=== PATIENT | male | born 1935 | race Caucasian/White ===

== ENCOUNTER → 2018-06-08 00:08 | Emergency (ER) | payer MEDICARE, OTHER ==
[~2018-06-08 00:08] MED LIST: Metoclopramide IV* 5 MG/ML 2 ML VIAL IV ONE; Morphine VIAL* 4 MG/ML VIAL (1 ml vial) IV ONE; NS 0.9% 1000 ML* 1,000 ML IV ONE; NS 0.9% 1000 ML* 1,000 ML IV SCH; fentaNYL* 50 MCG/ML 2 ML VIAL (100 MCG VIAL) ONE
[2018-06-08] MEDS: fentaNYL* 50 MCG/ML 2 ML VIAL (100 MCG VIAL) IV SLOW PU ONE ×2 (00:47→01:00)
[2018-06-08 00:54] LABS: ABS Basophils 0.1 10^3/ul (0-0.2); ABS Eosinophils 0 10^3/ul (0-0.6); ABS Lymphocytes 0.8 10^3/ul (1.0-4.8); ABS Monocytes 1.5 10^3/ul (0-0.8); ABS Neutrophils 17.1 10^3/ul (1.5-7.7); ABS Nucleated RBC 0 10^3/ul; Eosinophil % 0 % (0-6); Hematocrit 31 % (42-52); Hemoglobin 10.7 g/dl (14.0-18.0); Lymphocyte % 4.1 % (25-47); Mean Corpuscular HGB Conc 34 g/dl (31-36); Mean Corpuscular Hemoglobin 35 pg (27-31); Mean Corpuscular Volume 104 fL (80-94); Mean Platelet Volume 7.2 fL (7.4-10.4); Nucleated Red Blood Cells % 0; Platelet Count 171 10^3/ul (150-450); Red Blood Count 3.02 10^6/ul (4.00-5.40); Red Cell Distribution Width 13 % (10.5-15); White Blood Count 19.5 10^3/ul (3.5-10.8)
--- NOTE | 2018-06-08 00:59 | ED ---
Abdominal Pain/Male - HPI Summary HPI Summary: This patient is an 82 year old M with ALS BIBA to [facility] with a chief complaint of immediate onset sharp abdominal pain that radiates to the back pain since 20: 00 today. Patient fell on the way to the bathroom. Per EMS, patient had a 60/40 blood pressure when lying down and was vomiting. He was given painkillers earlier today and also threw them up. Patient is on medications for eye issues. - History of Current Complaint Chief Complaint: EDAbdPain Stated Complaint: ABD PAIN Time Seen by Provider: 06/08/18 00:09 Hx Obtained From: Patient, EMS Onset/Duration: Sudden Onset, Lasting Hours - Since 20:00 today Timing: Constant, Lasting Hours - Since 20:00 today Severity Initially: Severe Severity Currently: Severe Pain Intensity: 10 Pain Scale Used: 0-10 Numeric Radiates: Yes Radiates to: Back Character: Sharp Associated Signs And Symptoms: Positive: Vomiting - Allergies/Home Medications Allergies/Adverse Reactions: Allergies Allergy/AdvReac Type Severity Reaction Status Date / Time No Known Allergies Allergy Verified 06/08/18 00:46 Home Medications: Home Medications NK [No Home Medications Reported] 06/08/18 [History Confirmed 06/08/18] PMH/Surg Hx/FS Hx/Imm Hx Endocrine/Hematology History: Denies: Hx Diabetes Respiratory History: Denies: Hx Asthma Opthamlomology History: Reports: Other Sensory Impairments - Eye problems - Cancer History Cancer Type, Location and Year: Bladder cancer Infectious Disease History: No Infectious Disease History: Denies: Traveled Outside the [place] in Last 30 Days - Family History Known Family History: Negative: Cardiac Disease - Social History Occupation: Retired Lives: With Family Substance Use Type: Reports: None Hx Tobacco Use: Yes Review of Systems Negative: Fever Positive: Abdominal Pain - immediate onset sharp abdominal pain that radiates to the back pain , Vomiting All Other Systems Reviewed And Are Negative: Yes Physical Exam - Summary Physical Exam Summary: GENERAL: Patient is a well-developed and nourished __(M)__ who is lying very uncomfortable secondary to pain in the stretcher. Patient is not in any acute respiratory distress. HEAD AND FACE: Abrasion to the forehead EYES: PERRLA, EOMI x 2. EARS: Hearing grossly intact. MOUTH: Oropharynx within normal limits. NECK: Supple, trachea is midline, no adenopathy, no JVD, no carotid bruit. CHEST: Symmetric, no tenderness at palpation LUNGS: Clear to auscultation bilaterally. No wheezing or crackles. CVS: Regular rate and rhythm, S1 and S2 present, no murmurs or gallops appreciated. ABDOMEN: Tender to palpation. EXTREMITIES: Full ROM in all major joints, no edema, no cyanosis or clubbing. NEURO: Alert and oriented x 3. No acute neurological deficits. Speech is normal and follows commands. SKIN: Dry and warm Triage Information Reviewed: Yes Vital Signs On Initial Exam: Initial Vitals Temp Pulse Resp BP Pulse Ox 97 F 85 18 122/68 97 06/08/18 00:44 06/08/18 00:44 06/08/18 00:44 06/08/18 00:44 06/08/18 00:44 Vital Signs Reviewed: Yes Diagnostics - Vital Signs Vital Signs Temp Pulse Resp BP Pulse Ox 06/08/18 00:47 16 06/08/18 00:44 97 F 85 18 122/68 97 - Laboratory Result Diagrams: 06/08/18 00:41 06/08/18 00:41 Lab Statement: Any lab studies that have been ordered have been reviewed, and results considered in the medical decision making process. - EKG 00:39 Cardiac Rate: NL - 96 BPM EKG Rhythm: Atrial Fibrillation Summary of EKG Findings: Ventricular bigeminy, ventricular conduction delay Abdominal Pain Fem Course/Dx - Course Course Of Treatment: Critical Note: Patient presents with abdominal pain radiating to back. EMS on arrival said his blood pressure was systolic in the 60 s. Patient was immediately taken for a chest/abdomen/pelvis CT Scan. I waived all labs given the emergency. I immediately called radiology to expedite the read. In the meantime, we consulted the transfer center to transfer to [place] for higher level of care. I spoke with Dr. Melba Avila, vascular surgeon at [facility], who accepted the patient for transfer to the ER there. I then spoke with Dr. Akhil Cordon in the ED at [facility] who will accept the patient for transfer. Radiology called back, stating that it is a ruptured AAA. - Diagnoses Provider Diagnoses: Ruptured abdominal aortic aneurysm (AAA) - Critical Care Time Critical Care Time: 75-104 min - 80 minutes Discharge - Sign-Out/Discharge Documenting (check all that apply): Patient Departure - Transfer to [facility] via helicopter - Discharge Plan Condition: Critical Disposition: TRANS HIGHER LVL OF CARE FAC Referrals: Tony Palencia MD [Primary Care Provider] - - Billing Disposition and Condition Condition: CRITICAL Disposition: Trans Higher Lvl of Care Fac - Attestation Statements Document Initiated by Scribe: Yes Documenting Scribe: Ryder Kaur Provider For Whom Scribe is Documenting (Include Credential): Ricci Raymond MD Scribe Attestation: Ryder Perry, scribed for Ricci Raymond MD on 06/08/18 at 0130. Scribe Documentation Reviewed: Yes Provider Attestation: The documentation as recorded by the [place] accurately reflects the service I personally performed and the decisions made by me, Ricci Raymond MD Consult Consult: 01:10. I spoke with Dr. Melba Avila, vascular surgeon at [facility], who accepted the patient for transfer to the ER there. I then spoke with Dr. Akhil Cordon in the ED at [facility] who will accept the patient for transfer.
[2018-06-08 01:02] LABS: INR 1.29 (0.77-1.02)
[2018-06-08 01:13] LABS: EGFR Non-African American 80.8 (>60)
--- NOTE | 2018-06-08 01:39 | RAD ---
EXAM: CT Angiography Chest With Intravenous Contrast EXAM DATE/TIME: 06/08/2018 12:26 AM CLINICAL HISTORY: 82 years old, male; Pain; Chest pain; Type not specified; Abdominal pain; Generalized; Additional info: Abdominal pain with hypotension eval for aaa TECHNIQUE: Axial computed tomographic angiography images of the chest with intravenous contrast using CT angiography protocol. All CT scans at this facility use at least one of these dose optimization techniques: automated exposure control; mA and/or kV adjustment per patient size (includes targeted exams where dose is matched to clinical indication); or iterative reconstruction. Coronal and sagittal reformatted images were created and reviewed. MIP reconstructed images were created and reviewed. CONTRAST: 100 ml of VISIPAQUE 320 administered intravenously. COMPARISON: OT CXR PORTAP CHEST AP PORTABLE 03/31/2013 12:56 AM FINDINGS: Pulmonary arteries: Normal. No pulmonary emboli. Aorta: Normal. No aortic aneurysm. No aortic dissection. 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 Vasculature: Arteriosclerotic changes are identified. Lungs: There are heterogeneous changes involving the pulmonary parenchyma, consistent with pulmonary emphysema. Pleural space: Normal. No pneumothorax. No pleural effusion. Heart: Coronary artery calcifications are noted. Bones/joints: Unremarkable. No acute fracture. Soft tissues: Fat-containing left Bochdalek hernia is present. Lymph nodes: Unremarkable. No enlarged lymph nodes. IMPRESSION: 1. No aortic dissection or pulmonary embolus. 2. Coronary artery calcifications. 3. Pulmonary emphysema. 4. Coronary artery calcifications. EXAM: CT Angiography Abdomen and Pelvis With Intravenous Contrast EXAM DATE/TIME: 06/08/2018 12:26 AM CLINICAL HISTORY: 82 years old, male; Pain; Chest pain; Type not specified; Abdominal pain; Generalized; Additional info: Abdominal pain with hypotension eval for aaa TECHNIQUE: Axial computed tomographic angiography images of the abdomen and pelvis with intravenous contrast material, including non-contrast images if performed. MIP and/or 3D reconstructed images were created and reviewed. All CT scans at this facility use at least one of these dose optimization techniques: automated exposure control; mA and/or kV adjustment per patient size (includes targeted exams where dose is matched to clinical indication); or iterative reconstruction. Coronal and sagittal reformatted images were created and reviewed. MIP reconstructed images were created and reviewed. CONTRAST: 100 ml of VISIPAQUE 320 administered intravenously. COMPARISON: OT CXR PORTAP CHEST AP PORTABLE 03/31/2013 12:56 AM FINDINGS: Lungs: Normal. No consolidation. VASCULATURE: Aorta: There is a large partially calcified infrarenal, fusiform abdominal aortic aneurysm measure approximately 8 cm in length. It has diameters of 6.9 x 7.1 cm. There is a extravasation of contrast into the retroperitoneum with large right retroperitoneal hemorrhage. Celiac Trunk and Mesenteric Arteries: There is calcification of the origin of the celiac artery with approximately 80% stenosis. There is calcification at the origin of the superior mesenteric artery with approximately 80-90% stenosis. Renal Arteries: Disc desiccation involving T. proximal right renal artery with approximately 80% stenosis. There is calcification involving the proximal left renal artery with approximately 80% stenosis. Iliac Arteries: There is calcification at ectasia of the right common iliac artery. As calcification involving the left common iliac artery. As calcification involving the proximal right superficial iliac artery with approximately 80% stenosis of the lumen. Common Femoral Arteries: There is extensive calcification involving the right common femoral artery with near occlusion. There is calcification involving the proximal left superficial femoral artery with occlusion. ABDOMEN: Liver: No mass. Gallbladder and bile ducts: There is evidence of cholelithiasis. The gallbladder wall is normal in appearance. There is no pericholecystic fluid. Pancreas: Unremarkable. No mass. No ductal dilation. Spleen: Unremarkable. No splenomegaly. Adrenals: There is dense calcification involving the origin of the left superficial iliac artery with almost complete occlusion of the lumen. Kidneys and ureters: Unremarkable. No solid mass. No hydronephrosis. Stomach and bowel: Unremarkable. No obstruction. No mucosal thickening. Appendix: No evidence of appendicitis. PELVIS: Bladder: Unremarkable. No mass. Reproductive: Unremarkable as visualized. ABDOMEN and PELVIS: Intraperitoneal space: Unremarkable. No free air. No significant fluid collection. Bones/joints: No acute fracture. No dislocation. Soft tissues: Unremarkable. Lymph nodes: Unremarkable. No enlarged lymph nodes. IMPRESSION: 1. Ruptured abdominal aortic aneurysm with a large retroperitoneal hemorrhage. 2. Extensive arterial sclerosis with multiple stenotic lesions, as described above and occlusion of the left superficial femoral artery. 3. Colonic diverticulosis 4. Enlarged prostate gland with prostatic calcifications. 5. Cholelithiasis. Findings were discussed with Ricci Raymond at 06/08/2018 1:30 AM EST. To contact [facility] with a general question: [facility] - [phone] For direct physician to physician contact: Physician Hotline - [phone] [facility] (ad Facility ID #[id number])
[2018-06-08 01:41] VITALS: BP 103/61
== END | disposition short-term general hospital (02) ==
LOC: ED 00:08
DX: I71.3 Abdominal aortic aneurysm, ruptured (principal); R11.10 Vomiting, unspecified; S00.81XA Abrasion of other part of head, initial encounter; W18.30XA Fall on same level, unspecified, initial encounter; Y92.009 Unspecified place in unspecified non-institutional (private) residence as the place of occurrence of the external cause; J43.9 Emphysema, unspecified; I48.91 Unspecified atrial fibrillation
CPT/HCPCS: 36415; 71275; 74174; 80053; 82553; 83605; 83735; 83874; 83880; 84145; 84484; 85025; 85610; 85730; 86850; 86900; 86901; 93005; 96374; 96375; 99285; J2270; J2765; J3010; Q9967